=== PATIENT | male | born 1985 | race Caucasian/White ===

== ENCOUNTER 2018-11-21 10:05 | Emergency (ER) | payer OTHER ==
[2018-11-21] MEDS: IBUPROFEN 800 MG TAB PO (10:50)
== END 2018-11-21 10:56 | disposition home or self-care (01) ==
LOC: FTE 10:05
DX: M54.2 Cervicalgia (principal); M54.9 Dorsalgia, unspecified
CPT/HCPCS: 99283; Z7502